=== PATIENT | female | born 1970 | race Caucasian/White ===

== ENCOUNTER → 2018-04-02 14:03 | Outpatient (CLI) | payer OTHER, SELFPAY ==
[2018-04-02 14:46] LABS: Basophils % 0.5 % (0.1-2.0); Eosinophils # 0.2 K/mm3 (0.0-0.4); Eosinophils % 2.5 % (0.1-12.0); Hematocrit 39.6 % (37.0-47.0); Lymphocytes # 2.5 K/mm3 (0.7-4.5); Lymphocytes % 36.9 K/mm3 (10-50); Mean Corpuscular HGB Conc 32.9 g/dL (31.8-35.4); Mean Corpuscular Hemoglobin 29.4 pg (27.0-31.2); Mean Corpuscular Volume 89.2 fl (81-99); Monocytes # 0.4 K/mm3 (0.1-1.0); Monocytes % 5.3 % (1.7-9.3); Neutrophils # 3.7 K/mm3 (1.8-7.8); Neutrophils % 54.8 % (37.0-80.0); Platelet Count 206 K/mm3 (142-424); Red Blood Count 4.44 M/mm3 (4.20-5.40); Red Cell Distribution Width 13.5 % (11.5-17.5); White Blood Count 6.7 K/mm3 (4.8-10.8)
[2018-04-02 16:05] LABS: Thyroid Stimulating Hormone 1.56 uIU/ml (0.358-3.740)
== END ==
PROVIDERS: PCP Nurse Practitioner Family; Visit Provider Obstetrics & Gynecology
DX: N93.8 Other specified abnormal uterine and vaginal bleeding (principal)
CPT/HCPCS: 36415; 84443; 85025

== ENCOUNTER 2023-10-13 13:37 | Emergency (ER) | payer OTHER, SELFPAY ==
[2023-10-13 13:42] VITALS: BP 184/78; PULSE 62; RESP 20; TEMP 36.7; O2SAT 98; BMI 24.7
[2023-10-13 13:44] VITALS: BP 184/78; PULSE 59; O2SAT 98
[2023-10-13 14:01] VITALS: BP 145/78; PULSE 61; RESP 13; O2SAT 98
--- NOTE | 2023-10-13 14:18 | XR_ITS ---
FINAL REPORT CLINICAL HISTORY: pain shoulder blade, R axilla FINDINGS: 2 views of the chest were obtained . The heart is normal in size. The mediastinum is within normal limits. The lungs are hyperinflated consistent with COPD. There is no pneumothorax. Osseous structures are unremarkable. IMPRESSION: No acute cardiopulmonary process. Reviewed, Interpreted and Dictated by Rasta Patel III, MD Transcribed by Annita Cleveland Authenticated and [facility]
--- NOTE | 2023-10-13 14:21 | PC.NURSE ---
called for recent CT results from [facility]
--- NOTE | 2023-10-13 14:27 | PC.NURSE ---
Manjit Osborne PA-C at bedside
[2023-10-13 14:31] VITALS: BP 180/90; PULSE 52; RESP 16; O2SAT 99
--- NOTE | 2023-10-13 14:31 | PC.NURSE ---
PT TO XR
--- NOTE | 2023-10-13 14:33 | ED_ITS ---
<Statement entered by Sergo Mathis MD - 10/26/23 22:30> I was consulted by the CHUCK, and we discussed the complexity of the problems being addressed. I approved the treatment and management plan for this patient's care in the emergency department, thus performing a substantive portion of the medical decision making. Sergo Mathis MD, GUSTAVO, FACEP Discharge Plan Disposition Patient Disposition: Eloped Chief Complaint: Shortness of Breath/Dyspnea Prescriptions Prescriptions: No Action buprenorphine-naloxone [Suboxone] 8-2 mg film 2 film SUBLINGUAL DAILY gabapentin 600 mg tablet 600 mg PO DAILY Referrals Follow up/Referrals: Tennille Almonte [Primary Care Provider] - See instructions Clinical Impressions Clinical Impression: Eloped from emergency department Discharge ED Provider: Paul Mondragon General Adult HPI General Chief complaint: Shortness of Breath/Dyspnea Stated complaint: Pain in R rib/shoulder area Time Seen by Provider: 10/13/23 14:15 Mode of Arrival: Ambulatory Source of Information: Patient Limitations: No Limitations Description of Symptoms (Recalled from ER Triage Doc. by RN): r sided back and rib pain History of Present Illness HPI narrative: Patient presents with a 2-week history of right upper back pain located to the medial aspect of the scapula. Patient states it is worse with taking a deep breath and there are no relieving factors. Patient was seen by her PCP and a CT scan of the chest was ordered at another facility which I am still awaiting on to review. Patient denies trauma or known injury. Patient does work sewing garments in industrial setting. She denies cardiac chest pain shortness of breath dyspnea fever chills hemoptysis hematochezia melena nausea vomiting diarrhea. Related Data Home Medications Medication Instructions Recorded Confirmed buprenorphine 8 mg-naloxone 2 mg 2 film sublingual DAILY 04/02/18 sublingual film (Suboxone) gabapentin 600 mg tablet 600 mg PO DAILY 04/02/18 Allergies Allergy/AdvReac Type Severity Reaction Status Date / Time penicillin G Allergy Verified 04/02/18 13:01 [facility] Disclaimer: The information contained in this section may have been updated after the patient was seen, as this information can be updated by other users. Medical History (Updated 10/13/23 @ 16:27 by Sully Kam RN) COPD (chronic obstructive pulmonary disease) Allergic rhinitis Carpal tunnel syndrome Anxiety Social History Smoking Status: Current every day smoker tobacco type: cigarettes packs per day: 2 alcohol intake: never substance use type: former substance user current occupational status: employed Travel in the last 8 weeks: None ROS Obtained: Yes Systems reviewed as appropriate & no additional complaints except as documented Physical Exam General General appearance: alert and in no apparent distress Head Head exam: atraumatic and normal inspection Eye Eye exam: Present normal appearance and EOMI ENT ENT exam: Present normal exam and normal oropharynx Neck Neck exam: Present normal inspection and full ROM Chest Chest inspection: Present normal inspection and symmetric chest wall rise Respiratory Respiratory exam: Present normal lung sounds bilaterally; Absent accessory muscle use Cardiovascular Cardiovascular exam: Present regular rate, normal rhythm and normal heart sounds Abdominal Exam Abdominal exam: Present soft; Absent tenderness Extremities Exam Extremities exam: Present normal inspection and full ROM Back Exam Back exam: Present normal inspection, full ROM and tenderness Comment: Patient is tender to palpation at the medial border of the scapula and the latissimus dorsi. However no muscular spasms/knots are felt no deformities. Manger of the back exam is unrevealing for any acute deformities erythema edema fluctuance. She is neurovascularly intact distally to the right upper extremity Neurological Exam Neurological exam: Present alert and oriented X3 Psychiatric Psychiatric exam: Present normal affect and normal mood Skin Skin exam: Present warm, dry and normal color Medical Decision Making Medical Records Medical records reviewed: Yes I reviewed the patient's medical records. Christiano Inquiry Pt receiving controlled substance: No Vital Signs: 10/13/23 13:42 10/13/23 13:44 10/13/23 14:01 Temperature 98.1 F Temperature Source Oral Pulse Rate 59 L 61 Pulse Rate [Left] 62 Respiratory Rate 20 13 Blood Pressure 184/78 H 145/78 H Blood Pressure [Left Arm] 184/78 H Blood Pressure Mean Blood Pressure Mean [Left Arm] 113 02 Sat by Pulse Oximetry 98 98 98 Oxygen Delivery Method Room Air Room Air Room Air 10/13/23 14:31 10/13/23 15:42 Temperature 98.1 F Temperature Source Pulse Rate 52 L 60 Pulse Rate [Left] Respiratory Rate 16 18 Blood Pressure 180/90 H 182/89 H Blood Pressure [Left Arm] Blood Pressure Mean 120 Blood Pressure Mean [Left Arm] 02 Sat by Pulse Oximetry 99 Oxygen Delivery Method Room Air Orders (Tests/Meds): ED MEDICATIONS Discontinued Medications Generic Name Dose Route Start Last Admin Trade Name Praful PRN Reason Stop Dose Admin Acetaminophen 1,000 mg 10/13/23 14:33 10/13/23 14:46 Acetaminophen 500mg Tab PO 10/13/23 14:34 Not Given ONCE ONE Ketorolac Tromethamine 30 mg 10/13/23 14:33 10/13/23 14:45 Ketorolac 30mg/Ml Vial IM 10/13/23 14:34 30 mg ONCE ONE Administration Methocarbamol 500 mg 10/13/23 14:34 10/13/23 14:47 Methocarbamol 500mg Tablet PO 10/13/23 14:35 500 mg ONCE ONE Administration Ondansetron HCl 4 mg 10/13/23 14:50 10/13/23 14:51 Ondansetron 4mg Odt SL 10/13/23 14:51 4 mg ONCE ONE Administration Ondansetron HCl 4 mg 10/13/23 14:57 10/13/23 15:27 Ondansetron 4mg Odt SL 10/13/23 14:58 Not Given ONCE ONE ORDERS Category Date Time Status CXR 2 view (NOT portable) [XR chest 2V] Stat Exams 10/13/23 14:18 Completed Medical Decision Narrative: In summary patient is a 52-year-old female who presents to the emergency department for evaluation of right upper back pain. Patient is presenting with a blood pressure of 184 systolic but otherwise hemodynamically stable afebrile satting at 99% on room air. Physical exam is remarkable for musculoskeletal tenderness at the medial border of the scapula. Breath sounds are equal bilaterally to the bases without adventitious sounds. Cardiovascular shows normal heart sounds with a regular rate. Differential diagnosis includes musculoskeletal strain versus overuse injury versus PE. Initial workup will be conducted with plain film chest x-ray and review of outside CT report hematologic labs EKG. unfortunately patient eloped at some point before laboratory testing. Critical Care Critical Care Time Critical Care Time: No
[2023-10-13] MEDS: KETOROLAC 30MG/ML VIAL 30 MG IM (14:45)
--- NOTE | 2023-10-13 14:46 | PC.NURSE ---
Pt refused Tylenol. Asking for zofran d/t nausea with Methocarbamol. Manjit Gillis PA-C notified of this.
[2023-10-13] MEDS: METHOCARBAMOL 500MG TABLET 500 MG PO (14:47)
[2023-10-13] MEDS: ONDANSETRON 4MG ODT 4 MG SL (14:51)
--- NOTE | 2023-10-13 15:38 | PC.NURSE ---
pt walked out of ER
--- NOTE | 2023-10-13 15:38 | PC.NURSE ---
Pt left the ER throwing her hands in the air. She did not have any IV in place nor stop when staff was attempting to speak to her. notified.
[2023-10-13 15:42] VITALS: BP 182/89; PULSE 60; RESP 18; TEMP 36.7; O2SAT 98
== END 2023-10-13 15:45 | disposition left against medical advice (07) ==
PROVIDERS: Emergency Provider Student in an Organized Health Care Education/Training Program; PCP Emergency Medicine
DX: M54.6 Pain in thoracic spine (principal); J44.9 Chronic obstructive pulmonary disease, unspecified; F17.210 Nicotine dependence, cigarettes, uncomplicated
CPT/HCPCS: 71046; 96372; 99285